=== PATIENT | female | born 1945 | race Caucasian/White ===

== ENCOUNTER 2021-06-08 15:48 | Inpatient (IN) ==
[2021-06-08 17:28] LABS: Basophils % 0.3 %; Eosinophils # 0.1 K/mcL (0.0-0.6); Eosinophils % 1.1 %; Hematocrit 35.7 % (35.3-44.9); Hemoglobin 11.2 g/dL (11.5-15.4); Immature Granulocytes % 0.2 % (0-4); Lymphocytes # 2.1 K/mcL (0.6-4.6); Lymphocytes % 22.4 %; Mean Corpuscular HGB Conc 31.4 g/dL (31.6-35.5); Mean Corpuscular Hemoglobin 32.7 pg (28.0-33.3); Mean Corpuscular Volume 104.1 fL (83.0-100.0); Mean Platelet Volume 12.9 fL (9.4-12.4); Monocytes # 0.6 K/mcL (0.0-1.3); Monocytes % 6.3 %; Neutrophils # 6.5 K/mcL (1.6-8.9); Platelet Count 136 K/mcL (140-400); Red Blood Count 3.43 M/mcL (3.82-4.97); Red Cell Distribution Width 14.1 % (11.5-14.5); Segmented Neutrophils % 69.7 %; White Blood Count 9.3 K/mcL (4.3-11.1)
[2021-06-08 17:48] LABS: BUN/Creatinine Ratio 34 (6-26); Blood Urea Nitrogen 47 mg/dL (8-23); Calcium 9.7 mg/dL (8.6-10.3); Carbon Dioxide 31 mEq/L (23-29); Chloride 106 mEq/L (98-107); Glucose 53 mg/dL (70-105); Osmolality,Calculated 302 (280-300); Potassium 4.7 mEq/L (3.5-5.1); Sodium 141 mEq/L (136-145); eGFR For African Americans 44 (> 60); eGFR For Non-African Americans 36 (> 60)
[2021-06-08 17:58] LABS: Troponin I < 0.03 ng/mL (< 0.04)
[2021-06-08] MEDS ORDERED: Acetaminophen 325 MG TABLET PO PRN (20:06)
[2021-06-08] MEDS ORDERED: Ondansetron 4 MG/2 ML VIAL IVP PRN (20:06)
[2021-06-08] MEDS ORDERED: Naloxone 0.4 MG/ML INJ IVP PRN (20:06)
[2021-06-08] MEDS ORDERED: Perflutren Lipid Microsphere 1.3 ML in 0.9 % Sodium Chloride 8.7 ML IVP PRN (20:09)
[2021-06-08] MEDS ORDERED: *HR* Dextrose 50 % in Water (Vial) 50 ML VIAL IVP PRN (21:58)
[2021-06-08] MEDS ORDERED: Dextrose Gel 15 GM/37.5 ML TUBE PO PRN ×2 (21:58)
[2021-06-08] MEDS ORDERED: D5% in Water 1,000 ML IVC PRN (21:58)
[2021-06-08] MEDS: carvediloL 6.25 MG TABLET PO SCH (23:13)
[2021-06-08] MEDS: Apixaban 5 MG TABLET PO SCH (23:13)
[2021-06-08] MEDS: Divalproex (24 HR) 250 MG TABLET PO SCH (23:14)
[2021-06-09 02:06] LABS: Hemoglobin 10.6 g/dL (11.5-15.4); Mean Corpuscular HGB Conc 33.1 g/dL (31.6-35.5); Mean Corpuscular Hemoglobin 33.8 pg (28.0-33.3); Mean Corpuscular Volume 101.9 fL (83.0-100.0); Mean Platelet Volume 12.6 fL (9.4-12.4); Platelet Count 123 K/mcL (140-400); Red Blood Count 3.14 M/mcL (3.82-4.97); White Blood Count 8.1 K/mcL (4.3-11.1)
[2021-06-09 02:14] LABS: INR 1.6; Prothrombin Time 18.1 Seconds (9.4-12.1)
[2021-06-09 02:16] LABS: Activated Partial Thrombo Time 36.4 Seconds (26.0-36.0)
[2021-06-09 03:39] LABS: Calcium 8.9 mg/dL (8.6-10.3); Potassium 5.3 mEq/L (3.5-5.1)
[2021-06-09] MEDS: Insulin LISPRO 300 UNITS/3 ML VIAL SUBQ SCH ×3 (07:20→17:23)
[2021-06-09] MEDS: carvediloL 6.25 MG TABLET PO SCH ×2 (08:18→15:59)
[2021-06-09] MEDS: Apixaban 5 MG TABLET PO SCH ×2 (08:18→19:43)
[2021-06-09] MEDS: Divalproex (24 HR) 250 MG TABLET PO SCH ×3 (08:18→19:43)
[2021-06-09] MEDS ORDERED: metOLazone 5 MG TABLET PO ONE (15:58)
[2021-06-09] MEDS: Famotidine 20 MG TABLET PO SCH (16:08)
[2021-06-09] MEDS: Isosorbide MONOnitrate (24 HR) 30 MG TAB.ER.24H PO SCH (16:08)
[2021-06-09] MEDS: Bumetanide 1 MG/4 ML VIAL IVP SCH (17:23)
[2021-06-09] MEDS ORDERED: Bumetanide 1 MG/4 ML VIAL IVP SCH (21:00)
[2021-06-10 05:40] LABS: Hematocrit 34.4 % (35.3-44.9); Hemoglobin 11.3 g/dL (11.5-15.4); Mean Corpuscular HGB Conc 32.8 g/dL (31.6-35.5); Mean Corpuscular Hemoglobin 33.7 pg (28.0-33.3); Mean Corpuscular Volume 102.7 fL (83.0-100.0); Mean Platelet Volume 12.8 fL (9.4-12.4); Platelet Count 131 K/mcL (140-400); Red Blood Count 3.35 M/mcL (3.82-4.97); Red Cell Distribution Width 14.1 % (11.5-14.5); White Blood Count 7.9 K/mcL (4.3-11.1)
[2021-06-10 06:02] LABS: Calcium 9.3 mg/dL (8.6-10.3); Potassium 5.1 mEq/L (3.5-5.1)
[2021-06-10] MEDS: Apixaban 5 MG TABLET PO SCH (08:10)
[2021-06-10] MEDS: Insulin LISPRO 300 UNITS/3 ML VIAL SUBQ SCH ×4 (08:11→20:22)
[2021-06-10] MEDS: Isosorbide MONOnitrate (24 HR) 30 MG TAB.ER.24H PO SCH (08:11)
[2021-06-10] MEDS: Divalproex (24 HR) 250 MG TABLET PO SCH ×3 (08:11→20:22)
[2021-06-10] MEDS: Aspirin Enteric Coated 81 MG Tablet PO SCH (08:11)
[2021-06-10] MEDS: Famotidine 20 MG TABLET PO SCH (08:11)
[2021-06-10] MEDS: carvediloL 6.25 MG TABLET PO SCH ×2 (08:11→18:18)
[2021-06-10] MEDS: Bumetanide 1 MG/4 ML VIAL IVP SCH ×2 (08:11→18:19)
[2021-06-10] MEDS ORDERED: amLODIPine 5 MG TABLET PO SCH (09:00)
[2021-06-10] MEDS ORDERED: *HR* Heparin 5,000 UNIT/ML VIAL IVP PRN ×2 (13:05)
[2021-06-10] MEDS ORDERED: *HR* Heparin 5,000 UNIT/ML VIAL IVP ONE (13:05)
[2021-06-10] MEDS ORDERED: Heparin 25,000UNIT/250ML 1/2NS 25,000 UNIT/250 ML IV.SOLN IVC SCH (13:15)
[2021-06-10 13:37] LABS: Hematocrit 33.2 % (35.3-44.9); Hemoglobin 10.6 g/dL (11.5-15.4); Mean Corpuscular HGB Conc 31.9 g/dL (31.6-35.5); Mean Corpuscular Volume 103.4 fL (83.0-100.0); Mean Platelet Volume 12.5 fL (9.4-12.4); Platelet Count 116 K/mcL (140-400); Red Blood Count 3.21 M/mcL (3.82-4.97)
[2021-06-10 13:45] LABS: INR 1.5
[2021-06-10 13:46] LABS: Heparin anti-factor XA UFH 0.66 IU/mL (0.30-0.70)
[2021-06-10] MEDS: Heparin 25,000UNIT/250ML 1/2NS 25,000 UNIT/250 ML IV.SOLN IVC SCH (14:25)
[2021-06-11 07:17] LABS: Hematocrit 33.5 % (35.3-44.9); Hemoglobin 10.5 g/dL (11.5-15.4); Mean Corpuscular HGB Conc 31.3 g/dL (31.6-35.5); Mean Corpuscular Volume 105.3 fL (83.0-100.0); Mean Platelet Volume 12.9 fL (9.4-12.4); Platelet Count 129 K/mcL (140-400); Red Blood Count 3.18 M/mcL (3.82-4.97); Red Cell Distribution Width 14.1 % (11.5-14.5); White Blood Count 7.1 K/mcL (4.3-11.1)
[2021-06-11] MEDS: Bumetanide 1 MG/4 ML VIAL IVP SCH ×3 (08:06→17:42)
[2021-06-11] MEDS: Isosorbide MONOnitrate (24 HR) 30 MG TAB.ER.24H PO SCH (08:06)
[2021-06-11] MEDS: Famotidine 20 MG TABLET PO SCH (08:06)
[2021-06-11] MEDS: Aspirin Enteric Coated 81 MG Tablet PO SCH (08:07)
[2021-06-11] MEDS: Insulin LISPRO 300 UNITS/3 ML VIAL SUBQ SCH ×4 (08:07→22:26)
[2021-06-11] MEDS: Divalproex (24 HR) 250 MG TABLET PO SCH ×3 (08:07→22:26)
[2021-06-11] MEDS: carvediloL 6.25 MG TABLET PO SCH ×2 (08:07→17:41)
[2021-06-11 08:08] LABS: Calcium 9.1 mg/dL (8.6-10.3)
[2021-06-11] MEDS: Heparin 25,000UNIT/250ML 1/2NS 25,000 UNIT/250 ML IV.SOLN IVC SCH (10:43)
[2021-06-11] MEDS: Apixaban 5 MG TABLET PO SCH ×2 (17:41→22:26)
[2021-06-12 02:53] LABS: Hematocrit 34.2 % (35.3-44.9); Hemoglobin 10.9 g/dL (11.5-15.4); Immature Platelets 11.6 % (1.1-6.1); Mean Corpuscular HGB Conc 31.9 g/dL (31.6-35.5); Mean Corpuscular Hemoglobin 33.3 pg (28.0-33.3); Mean Corpuscular Volume 104.6 fL (83.0-100.0); Mean Platelet Volume 13.1 fL (9.4-12.4); Red Blood Count 3.27 M/mcL (3.82-4.97); Red Cell Distribution Width 14.2 % (11.5-14.5); White Blood Count 7.6 K/mcL (4.3-11.1)
[2021-06-12 04:53] LABS: ABG Base Excess 7 mEq/L (-2 to 3); ABG HCO3 34 mEq/L (21-27); ABG Oxygen Saturation 95 % (95-98); ABG PCO2 56 mmHg (35-45); ABG PH 7.39 pH Units (7.32-7.45); ABG PO2 76 mmHg (85-104); ABG TCO2 35 mEq/L (20-26)
[2021-06-12 05:04] LABS: Calcium 9.1 mg/dL (8.6-10.3); Potassium 5.5 mEq/L (3.5-5.1)
[2021-06-12] MEDS: Insulin LISPRO 300 UNITS/3 ML VIAL SUBQ SCH ×4 (11:27→22:01)
[2021-06-12] MEDS: Famotidine 20 MG TABLET PO SCH (11:50)
[2021-06-12] MEDS: Bumetanide 1 MG/4 ML VIAL IVP SCH ×2 (11:50→18:19)
[2021-06-12] MEDS: Aspirin Enteric Coated 81 MG Tablet PO SCH (11:51)
[2021-06-12] MEDS: Isosorbide MONOnitrate (24 HR) 30 MG TAB.ER.24H PO SCH (11:51)
[2021-06-12] MEDS: Apixaban 5 MG TABLET PO SCH ×2 (11:51→22:00)
[2021-06-12] MEDS: carvediloL 6.25 MG TABLET PO SCH ×2 (11:51→18:20)
[2021-06-12] MEDS: Divalproex (24 HR) 250 MG TABLET PO SCH ×3 (11:51→22:00)
[2021-06-12] MEDS: *HR* Amiodarone 200 MG TABLET PO SCH ×3 (11:53→23:05)
[2021-06-13 05:07] LABS: Hematocrit 33.7 % (35.3-44.9); Hemoglobin 11.2 g/dL (11.5-15.4); Mean Corpuscular HGB Conc 33.2 g/dL (31.6-35.5); Mean Corpuscular Hemoglobin 33.6 pg (28.0-33.3); Mean Corpuscular Volume 101.2 fL (83.0-100.0); Mean Platelet Volume 12.9 fL (9.4-12.4); Platelet Count 108 K/mcL (140-400); Red Blood Count 3.33 M/mcL (3.82-4.97); Red Cell Distribution Width 13.9 % (11.5-14.5); White Blood Count 7.2 K/mcL (4.3-11.1)
[2021-06-13 05:25] LABS: Calcium 9.3 mg/dL (8.6-10.3); Potassium 5.5 mEq/L (3.5-5.1)
[2021-06-13] MEDS: Bumetanide 1 MG/4 ML VIAL IVP SCH (08:43)
[2021-06-13] MEDS: Apixaban 5 MG TABLET PO SCH ×2 (08:44→20:01)
[2021-06-13] MEDS: Aspirin Enteric Coated 81 MG Tablet PO SCH (08:44)
[2021-06-13] MEDS: Divalproex (24 HR) 250 MG TABLET PO SCH ×3 (08:44→20:01)
[2021-06-13] MEDS: carvediloL 6.25 MG TABLET PO SCH (08:44)
[2021-06-13] MEDS: Famotidine 20 MG TABLET PO SCH (08:45)
[2021-06-13] MEDS: *HR* Amiodarone 200 MG TABLET PO SCH (08:45)
[2021-06-13] MEDS: Isosorbide MONOnitrate (24 HR) 30 MG TAB.ER.24H PO SCH (08:45)
[2021-06-13] MEDS: Insulin LISPRO 300 UNITS/3 ML VIAL SUBQ SCH ×4 (08:46→20:00)
[2021-06-13] MEDS ORDERED: SODIUM ZIRCONIUM CYCLOSILICATE 5 GM POWD.PACK PO ONE (09:00)
[2021-06-13 09:48] LABS: Uric Acid 9.9 mg/dL (2.3-7.6)
[2021-06-13] MEDS ORDERED: *HR* Midazolam HCl 2 MG/2 ML VIAL IVP PRN (13:29)
[2021-06-13] MEDS ORDERED: 0.9 % Sodium Chloride 500 ML IVC ONE (13:29)
[2021-06-13] MEDS ORDERED: *HR* Midazolam HCl 5 MG/5 ML VIAL IVP ONE ×2 (13:36→13:37)
[2021-06-13] MEDS: *HR* FentaNYL (PF) 100 MCG/2 ML VIAL IVP PRN ×2 (13:45→13:55)
[2021-06-13] MEDS: Albumin 25% 25gram/100mL 25 GM/100 ML IV.SOLN IVPB SCH ×2 (16:16→23:08)
[2021-06-13] MEDS: Bumetanide 1 MG TABLET PO SCH (16:17)
[2021-06-13] MEDS: Insulin DETEMIR 100 UNIT/ML X5UNITS SUBQ SCH (20:01)
[2021-06-14 02:26] LABS: Calcium 9.6 mg/dL (8.6-10.3); Potassium 4.6 mEq/L (3.5-5.1)
[2021-06-14] MEDS: Isosorbide MONOnitrate (24 HR) 30 MG TAB.ER.24H PO SCH (07:48)
[2021-06-14] MEDS: Divalproex (24 HR) 250 MG TABLET PO SCH ×3 (07:49→19:57)
[2021-06-14] MEDS: *HR* Amiodarone 200 MG TABLET PO SCH (07:49)
[2021-06-14] MEDS: Famotidine 20 MG TABLET PO SCH (07:49)
[2021-06-14] MEDS: Aspirin Enteric Coated 81 MG Tablet PO SCH (07:49)
[2021-06-14] MEDS: Apixaban 5 MG TABLET PO SCH ×2 (07:49→19:57)
[2021-06-14] MEDS: Albumin 25% 25gram/100mL 25 GM/100 ML IV.SOLN IVPB SCH ×3 (08:53→23:10)
[2021-06-14] MEDS: Insulin LISPRO 300 UNITS/3 ML VIAL SUBQ SCH ×4 (11:15→19:57)
[2021-06-14 12:20] LABS: Estimated Average Glucose 174 mg/dl; Hemoglobin A1C 7.7 %
[2021-06-14] MEDS: Bumetanide 1 MG TABLET PO SCH (12:37)
[2021-06-14] MEDS: carvediloL 6.25 MG TABLET PO SCH (16:44)
[2021-06-14] MEDS ORDERED: Azithromycin 500 MG in 0.9 % Sodium Chloride 250 ML IVPB SCH (17:00)
[2021-06-14] MEDS: cefTRIAXone 1,000 MG in 0.9 % Sodium Chloride Mini Bag 100 ML IVPB SCH (18:49)
[2021-06-14] MEDS: Doxycycline 100 MG in 0.9 % Sodium Chloride Mini Bag 100 ML IVPB SCH (19:44)
[2021-06-14] MEDS: Insulin DETEMIR 100 UNIT/ML X5UNITS SUBQ SCH (19:58)
[2021-06-15 03:48] LABS: Calcium 9.7 mg/dL (8.6-10.3); Potassium 4.4 mEq/L (3.5-5.1)
[2021-06-15] MEDS: Doxycycline 100 MG in 0.9 % Sodium Chloride Mini Bag 100 ML IVPB SCH ×2 (05:05→16:17)
[2021-06-15] MEDS ORDERED: Bumetanide 1 MG TABLET PO SCH (09:00)
[2021-06-15] MEDS: *HR* Amiodarone 200 MG TABLET PO SCH (10:01)
[2021-06-15] MEDS: Aspirin Enteric Coated 81 MG Tablet PO SCH (10:01)
[2021-06-15] MEDS: Insulin LISPRO 300 UNITS/3 ML VIAL SUBQ SCH ×4 (10:02→20:25)
[2021-06-15] MEDS: Famotidine 20 MG TABLET PO SCH (10:02)
[2021-06-15] MEDS: Divalproex (24 HR) 250 MG TABLET PO SCH ×3 (10:02→20:24)
[2021-06-15] MEDS: Isosorbide MONOnitrate (24 HR) 30 MG TAB.ER.24H PO SCH ×2 (10:03→16:19)
[2021-06-15] MEDS: Apixaban 5 MG TABLET PO SCH ×2 (10:03→20:24)
[2021-06-15] MEDS: cefTRIAXone 1,000 MG in 0.9 % Sodium Chloride Mini Bag 100 ML IVPB SCH (10:04)
[2021-06-15] MEDS: carvediloL 6.25 MG TABLET PO SCH ×2 (10:04→16:20)
[2021-06-15] MEDS: Albumin 25% 25gram/100mL 25 GM/100 ML IV.SOLN IVPB SCH ×2 (10:05→16:18)
[2021-06-15] MEDS: Bumetanide 1 MG/4 ML VIAL IVP SCH ×2 (16:20→18:32)
[2021-06-16] MEDS: Albumin 25% 25gram/100mL 25 GM/100 ML IV.SOLN IVPB SCH ×4 (02:16→23:03)
[2021-06-16] MEDS: Insulin LISPRO 300 UNITS/3 ML VIAL SUBQ SCH ×4 (02:18→20:31)
[2021-06-16] MEDS: Insulin DETEMIR 100 UNIT/ML X5UNITS SUBQ SCH ×2 (04:45→20:32)
[2021-06-16] MEDS: Doxycycline 100 MG in 0.9 % Sodium Chloride Mini Bag 100 ML IVPB SCH ×2 (05:40→18:05)
[2021-06-16] MEDS: Apixaban 5 MG TABLET PO SCH ×2 (08:08→20:26)
[2021-06-16] MEDS: Isosorbide MONOnitrate (24 HR) 30 MG TAB.ER.24H PO SCH (08:09)
[2021-06-16] MEDS: carvediloL 6.25 MG TABLET PO SCH ×2 (08:09→16:11)
[2021-06-16] MEDS: Divalproex (24 HR) 250 MG TABLET PO SCH ×3 (08:09→20:26)
[2021-06-16] MEDS: Famotidine 20 MG TABLET PO SCH (08:09)
[2021-06-16] MEDS: Aspirin Enteric Coated 81 MG Tablet PO SCH (08:09)
[2021-06-16] MEDS: *HR* Amiodarone 200 MG TABLET PO SCH (08:09)
[2021-06-16] MEDS: Bumetanide 1 MG/4 ML VIAL IVP SCH ×2 (08:09→16:11)
[2021-06-16] MEDS: cefTRIAXone 1,000 MG in 0.9 % Sodium Chloride Mini Bag 100 ML IVPB SCH (08:10)
[2021-06-16 10:02] LABS: Potassium 4.4 mEq/L (3.5-5.1)
[2021-06-16] MEDS ORDERED: Ipratropium/Albuterol Neb 3 ML IH PRN (17:45)
[2021-06-16] MEDS: predniSONE 20 MG TABLET PO SCH (18:00)
[2021-06-17 02:17] LABS: Calcium 10.5 mg/dL (8.6-10.3); Potassium 4.3 mEq/L (3.5-5.1)
[2021-06-17] MEDS: Doxycycline 100 MG in 0.9 % Sodium Chloride Mini Bag 100 ML IVPB SCH ×2 (05:23→18:23)
[2021-06-17] MEDS: *HR* Amiodarone 200 MG TABLET PO SCH (08:32)
[2021-06-17] MEDS: Famotidine 20 MG TABLET PO SCH (08:32)
[2021-06-17] MEDS: Aspirin Enteric Coated 81 MG Tablet PO SCH (08:32)
[2021-06-17] MEDS: predniSONE 20 MG TABLET PO SCH (08:32)
[2021-06-17] MEDS: Apixaban 5 MG TABLET PO SCH ×2 (08:33→20:21)
[2021-06-17] MEDS: carvediloL 6.25 MG TABLET PO SCH ×2 (08:33→18:24)
[2021-06-17] MEDS: Bumetanide 1 MG/4 ML VIAL IVP SCH ×2 (08:33→18:23)
[2021-06-17] MEDS: Isosorbide MONOnitrate (24 HR) 30 MG TAB.ER.24H PO SCH ×2 (08:33→15:28)
[2021-06-17] MEDS: Divalproex (24 HR) 250 MG TABLET PO SCH ×3 (08:33→20:22)
[2021-06-17] MEDS: Insulin LISPRO 300 UNITS/3 ML VIAL SUBQ SCH ×4 (08:34→20:34)
[2021-06-17] MEDS: cefTRIAXone 1,000 MG in 0.9 % Sodium Chloride Mini Bag 100 ML IVPB SCH (08:35)
[2021-06-17 09:07] LABS: ANA IgG by ELISA NONE DETECTED (None Detected)
[2021-06-17] MEDS: Albumin 25% 25gram/100mL 25 GM/100 ML IV.SOLN IVPB SCH (11:41)
[2021-06-17] MEDS ORDERED: Isosorbide MONOnitrate (24 HR) 30 MG TAB.ER.24H PO SCH (13:15)
[2021-06-17] MEDS ORDERED: Isosorbide MONOnitrate (24 HR) 30 MG TAB.ER.24H PO ONE (13:15)
[2021-06-17] MEDS: Spironolactone 25 MG TABLET PO SCH (15:28)
[2021-06-17] MEDS: Insulin DETEMIR 100 UNIT/ML X5UNITS SUBQ SCH (20:34)
[2021-06-18 03:24] LABS: Beta Globulin (PEP) 0.76 g/dL (0.48-1.10)
[2021-06-18 04:59] LABS: Hematocrit 28.3 % (35.3-44.9); Mean Corpuscular HGB Conc 32.9 g/dL (31.6-35.5); Mean Corpuscular Hemoglobin 32.7 pg (28.0-33.3); Mean Corpuscular Volume 99.6 fL (83.0-100.0); Red Blood Count 2.84 M/mcL (3.82-4.97)
[2021-06-18] MEDS: Doxycycline 100 MG in 0.9 % Sodium Chloride Mini Bag 100 ML IVPB SCH (04:59)
[2021-06-18 05:01] LABS: Hemoglobin 9.3 g/dL (11.5-15.4); Immature Platelets 14.7 % (1.1-6.1); Mean Platelet Volume 13.5 fL (9.4-12.4); Red Cell Distribution Width 13.6 % (11.5-14.5); White Blood Count 7.6 K/mcL (4.3-11.1)
[2021-06-18 05:19] LABS: Calcium 10.4 mg/dL (8.6-10.3); Potassium 4.3 mEq/L (3.5-5.1)
[2021-06-18 08:46] LABS: Serine Protease-3 Antibody 61 AU/mL (0-19)
[2021-06-18 08:52] LABS: IFE Reflexed NOT DONE
[2021-06-18] MEDS: predniSONE 20 MG TABLET PO SCH (10:02)
[2021-06-18] MEDS: *HR* Amiodarone 200 MG TABLET PO SCH (10:02)
[2021-06-18] MEDS: Aspirin Enteric Coated 81 MG Tablet PO SCH (10:02)
[2021-06-18] MEDS: Apixaban 5 MG TABLET PO SCH ×2 (10:02→21:02)
[2021-06-18] MEDS: carvediloL 6.25 MG TABLET PO SCH ×2 (10:03→18:41)
[2021-06-18] MEDS: Divalproex (24 HR) 250 MG TABLET PO SCH ×3 (10:05→21:02)
[2021-06-18] MEDS: Famotidine 20 MG TABLET PO SCH (10:05)
[2021-06-18] MEDS: Isosorbide MONOnitrate (24 HR) 30 MG TAB.ER.24H PO SCH (10:05)
[2021-06-18] MEDS: Spironolactone 25 MG TABLET PO SCH (10:05)
[2021-06-18] MEDS: Bumetanide 1 MG/4 ML VIAL IVP SCH ×2 (10:05→18:42)
[2021-06-18] MEDS: Insulin LISPRO 300 UNITS/3 ML VIAL SUBQ SCH ×5 (10:12→21:07)
[2021-06-18] MEDS: Cefdinir 300 MG CAPSULE PO SCH ×2 (10:19→21:02)
[2021-06-18] MEDS: cefTRIAXone 1,000 MG in 0.9 % Sodium Chloride Mini Bag 100 ML IVPB SCH (10:38)
[2021-06-18] MEDS: Albumin 25% 25gram/100mL 25 GM/100 ML IV.SOLN IVPB SCH ×2 (11:23→16:36)
[2021-06-18] MEDS ORDERED: Bumetanide 1 MG/4 ML VIAL IVP ONE (11:30)
[2021-06-18] MEDS ORDERED: Albumin 25% 25gram/100mL 25 GM/100 ML IV.SOLN IVPB SCH (16:00)
[2021-06-18] MEDS ORDERED: Bumetanide 1 MG/4 ML VIAL IVP SCH (17:00)
[2021-06-18] MEDS: Doxycycline 100 MG CAPSULE PO SCH (18:41)
[2021-06-18] MEDS: Insulin DETEMIR 100 UNIT/ML X5UNITS SUBQ SCH (21:12)
[2021-06-19 04:41] LABS: Hemoglobin 9.4 g/dL (11.5-15.4); Mean Corpuscular HGB Conc 33.6 g/dL (31.6-35.5); Mean Corpuscular Hemoglobin 33.5 pg (28.0-33.3); Mean Corpuscular Volume 99.6 fL (83.0-100.0); Mean Platelet Volume 13.2 fL (9.4-12.4); Platelet Count 112 K/mcL (140-400); Red Blood Count 2.81 M/mcL (3.82-4.97); White Blood Count 8.1 K/mcL (4.3-11.1)
[2021-06-19] MEDS: Albumin 25% 25gram/100mL 25 GM/100 ML IV.SOLN IVPB SCH ×2 (06:24→16:23)
[2021-06-19] MEDS: Doxycycline 100 MG CAPSULE PO SCH (06:25)
[2021-06-19] MEDS: Aspirin Enteric Coated 81 MG Tablet PO SCH (07:30)
[2021-06-19] MEDS: Divalproex (24 HR) 250 MG TABLET PO SCH ×3 (07:30→20:57)
[2021-06-19] MEDS: Spironolactone 25 MG TABLET PO SCH (07:31)
[2021-06-19] MEDS: Famotidine 20 MG TABLET PO SCH (07:31)
[2021-06-19] MEDS: predniSONE 20 MG TABLET PO SCH (07:31)
[2021-06-19] MEDS: *HR* Amiodarone 200 MG TABLET PO SCH (07:31)
[2021-06-19] MEDS: Isosorbide MONOnitrate (24 HR) 30 MG TAB.ER.24H PO SCH (07:31)
[2021-06-19] MEDS: Apixaban 5 MG TABLET PO SCH ×2 (07:32→20:57)
[2021-06-19] MEDS: carvediloL 6.25 MG TABLET PO SCH ×2 (07:32→16:57)
[2021-06-19] MEDS: Insulin LISPRO 300 UNITS/3 ML VIAL SUBQ SCH ×4 (07:32→20:56)
[2021-06-19] MEDS: Bumetanide 1 MG/4 ML VIAL IVP SCH ×2 (08:47→18:35)
[2021-06-19 09:22] LABS: Calcium 10.5 mg/dL (8.6-10.3); Potassium 4.1 mEq/L (3.5-5.1)
[2021-06-19 10:02] LABS: Amorphous Sediment,Urine Few per hpf (None-Few); Bilirubin,Urine Negative (Negative); Blood,Urine Negative (Negative); Clarity,Urine Clear (Clear); Color,Urine Light-Yellow (Yellow); Glucose,Urine (UA) Normal (Normal); Hyaline Casts,Urine Moderate per lpf (None Seen); Ketones,Urine Negative (Negative); Leukocyte Esterase,Urine Negative (Negative); Mucus,Urine Few per lpf (None-Few); Nitrite,Urine Negative (Negative); PH,Urine 5.5 pH Units (5.0-8.0); Protein,Urine 50 mg/dL (Neg-Trace); RBC,Urine 0-3 per hpf (0-3); Specific Gravity,Urine 1.014 (1.010-1.025); Squamous Epithelial Cell,Urine Few per hpf (None-Few); Urobilinogen,Urine Normal (Normal); WBC,Urine 0-3 per hpf (0-3)
[2021-06-19] MEDS ORDERED: Bumetanide 1 MG/4 ML VIAL IVP ONE (10:55)
[2021-06-19] MEDS ORDERED: Spironolactone 25 MG TABLET PO ONE (10:57)
[2021-06-19] MEDS: Insulin DETEMIR 100 UNIT/ML X5UNITS SUBQ SCH (23:32)
[2021-06-20 02:14] LABS: Hematocrit 29.1 % (35.3-44.9); Hemoglobin 9.5 g/dL (11.5-15.4); Immature Platelets 12.8 % (1.1-6.1); Mean Corpuscular HGB Conc 32.6 g/dL (31.6-35.5); Mean Corpuscular Hemoglobin 32.8 pg (28.0-33.3); Mean Corpuscular Volume 100.3 fL (83.0-100.0); Mean Platelet Volume 13.1 fL (9.4-12.4); Red Blood Count 2.9 M/mcL (3.82-4.97); Red Cell Distribution Width 14.1 % (11.5-14.5); White Blood Count 8.8 K/mcL (4.3-11.1)
[2021-06-20 02:27] LABS: Calcium 10.5 mg/dL (8.6-10.3); Potassium 4.3 mEq/L (3.5-5.1)
[2021-06-20] MEDS: Albumin 25% 25gram/100mL 25 GM/100 ML IV.SOLN IVPB SCH (07:42)
[2021-06-20] MEDS: *HR* Amiodarone 200 MG TABLET PO SCH (07:47)
[2021-06-20] MEDS: Isosorbide MONOnitrate (24 HR) 30 MG TAB.ER.24H PO SCH (07:47)
[2021-06-20] MEDS: Apixaban 5 MG TABLET PO SCH ×2 (07:47→19:43)
[2021-06-20] MEDS: Famotidine 20 MG TABLET PO SCH (07:47)
[2021-06-20] MEDS: Aspirin Enteric Coated 81 MG Tablet PO SCH (07:47)
[2021-06-20] MEDS: Divalproex (24 HR) 250 MG TABLET PO SCH ×3 (07:47→19:42)
[2021-06-20] MEDS: Bumetanide 1 MG/4 ML VIAL IVP SCH (07:48)
[2021-06-20] MEDS: Insulin LISPRO 300 UNITS/3 ML VIAL SUBQ SCH ×3 (07:48→17:07)
[2021-06-20] MEDS: carvediloL 6.25 MG TABLET PO SCH ×2 (07:48→17:07)
[2021-06-20] MEDS: predniSONE 20 MG TABLET PO SCH (08:31)
[2021-06-20] MEDS: hydrALAZINE 25 MG TABLET PO SCH ×2 (08:31→17:07)
[2021-06-20] MEDS: Spironolactone 25 MG TABLET PO SCH (08:31)
[2021-06-20] MEDS ORDERED: Insulin DETEMIR 100 UNIT/ML X5UNITS SUBQ SCH (09:00)
[2021-06-21] MEDS: hydrALAZINE 25 MG TABLET PO SCH ×3 (01:23→15:42)
[2021-06-21] MEDS: Insulin LISPRO 300 UNITS/3 ML VIAL SUBQ SCH ×5 (02:11→21:19)
[2021-06-21 06:07] LABS: Hemoglobin 9.9 g/dL (11.5-15.4); Mean Corpuscular Volume 99.3 fL (83.0-100.0); Red Cell Distribution Width 14.1 % (11.5-14.5)
[2021-06-21 06:09] LABS: Hematocrit 29.9 % (35.3-44.9); Immature Platelets 12.7 % (1.1-6.1); Mean Corpuscular HGB Conc 33.1 g/dL (31.6-35.5); Mean Corpuscular Hemoglobin 32.9 pg (28.0-33.3); Mean Platelet Volume 13.4 fL (9.4-12.4); Red Blood Count 3.01 M/mcL (3.82-4.97); White Blood Count 9.9 K/mcL (4.3-11.1)
[2021-06-21 06:25] LABS: Albumin/Globulin Ratio 2.4 (1.1-2.2); Bilirubin,Direct 0.3 mg/dL (0.0-0.2); Bilirubin,Indirect 0.6 mg/dL (0.0-1.0); Bilirubin,Total 0.9 mg/dL (0.3-1.0); Globulin 2.1 g/dL (2.4-3.5); Total Protein 7.1 g/dL (6.4-8.9)
[2021-06-21 06:28] LABS: Calcium 10.7 mg/dL (8.6-10.3); Magnesium 2.6 mg/dL (1.6-2.6); Potassium 4.5 mEq/L (3.5-5.1)
[2021-06-21 06:37] LABS: Thyroid Stimulating Hormone 2.707 mcIU/mL (0.340-5.600)
[2021-06-21] MEDS ORDERED: Bumetanide 1 MG/4 ML VIAL IVP ONE (07:30)
[2021-06-21] MEDS: Divalproex (24 HR) 250 MG TABLET PO SCH ×3 (08:14→21:16)
[2021-06-21] MEDS: Isosorbide MONOnitrate (24 HR) 30 MG TAB.ER.24H PO SCH (08:15)
[2021-06-21] MEDS: predniSONE 20 MG TABLET PO SCH (08:16)
[2021-06-21] MEDS: Apixaban 5 MG TABLET PO SCH ×2 (08:16→21:16)
[2021-06-21] MEDS: Aspirin Enteric Coated 81 MG Tablet PO SCH (08:17)
[2021-06-21] MEDS: Famotidine 20 MG TABLET PO SCH (08:17)
[2021-06-21] MEDS: *HR* Amiodarone 200 MG TABLET PO SCH (08:17)
[2021-06-21] MEDS: carvediloL 6.25 MG TABLET PO SCH ×2 (08:18→15:42)
[2021-06-21] MEDS: Spironolactone 25 MG TABLET PO SCH (08:18)
[2021-06-21] MEDS: Insulin DETEMIR 100 UNIT/ML X5UNITS SUBQ SCH ×2 (08:28→21:18)
[2021-06-21] MEDS: Bumetanide 1 MG TABLET PO SCH (21:16)
[2021-06-22 02:00] LABS: Hemoglobin 9.5 g/dL (11.5-15.4); Mean Corpuscular Volume 97.6 fL (83.0-100.0)
[2021-06-22 02:02] LABS: Immature Platelets 10.9 % (1.1-6.1); Mean Corpuscular HGB Conc 33.9 g/dL (31.6-35.5); Mean Corpuscular Hemoglobin 33.1 pg (28.0-33.3); Mean Platelet Volume 12.9 fL (9.4-12.4); Red Blood Count 2.87 M/mcL (3.82-4.97); Red Cell Distribution Width 13.6 % (11.5-14.5); White Blood Count 8.7 K/mcL (4.3-11.1)
[2021-06-22 02:18] LABS: Calcium 10.4 mg/dL (8.6-10.3); Potassium 4.4 mEq/L (3.5-5.1)
[2021-06-22] MEDS: Aspirin Enteric Coated 81 MG Tablet PO SCH (08:37)
[2021-06-22] MEDS: Famotidine 20 MG TABLET PO SCH (08:37)
[2021-06-22] MEDS: Bumetanide 1 MG TABLET PO SCH ×2 (08:37→17:30)
[2021-06-22] MEDS: predniSONE 10 MG TABLET PO SCH (08:37)
[2021-06-22] MEDS: *HR* Amiodarone 200 MG TABLET PO SCH (08:37)
[2021-06-22] MEDS: Isosorbide MONOnitrate (24 HR) 30 MG TAB.ER.24H PO SCH (08:37)
[2021-06-22] MEDS: Apixaban 5 MG TABLET PO SCH ×2 (08:37→20:59)
[2021-06-22] MEDS: Spironolactone 25 MG TABLET PO SCH (08:37)
[2021-06-22] MEDS: Divalproex (24 HR) 250 MG TABLET PO SCH ×3 (08:37→21:00)
[2021-06-22] MEDS: Insulin DETEMIR 100 UNIT/ML X5UNITS SUBQ SCH ×2 (08:44→21:01)
[2021-06-22] MEDS: hydrALAZINE 25 MG TABLET PO SCH ×4 (08:44→17:30)
[2021-06-22] MEDS: Insulin LISPRO 300 UNITS/3 ML VIAL SUBQ SCH ×4 (08:44→21:00)
[2021-06-23] MEDS: hydrALAZINE 25 MG TABLET PO SCH ×5 (00:24→23:27)
[2021-06-23 04:21] LABS: Basophils % 0.1 %; Eosinophils # 0.2 K/mcL (0.0-0.6); Eosinophils % 1.6 %; Hematocrit 30.9 % (35.3-44.9); Hemoglobin 10.2 g/dL (11.5-15.4); Immature Granulocytes % 0.7 % (0-4); Lymphocytes # 2.7 K/mcL (0.6-4.6); Lymphocytes % 25.2 %; Mean Corpuscular Hemoglobin 32.6 pg (28.0-33.3); Mean Corpuscular Volume 98.7 fL (83.0-100.0); Mean Platelet Volume 12.4 fL (9.4-12.4); Monocytes # 0.7 K/mcL (0.0-1.3); Monocytes % 6.7 %; Neutrophils # 7.1 K/mcL (1.6-8.9); Platelet Count 135 K/mcL (140-400); Red Blood Count 3.13 M/mcL (3.82-4.97); Red Cell Distribution Width 14.2 % (11.5-14.5); Segmented Neutrophils % 65.7 %; White Blood Count 10.8 K/mcL (4.3-11.1)
[2021-06-23 04:42] LABS: Calcium 10.6 mg/dL (8.6-10.3); Magnesium 2.2 mg/dL (1.6-2.6); Potassium 4.1 mEq/L (3.5-5.1)
[2021-06-23 05:05] LABS: Folate 11.7 ng/mL (3.0-16.0)
[2021-06-23] MEDS: Insulin LISPRO 300 UNITS/3 ML VIAL SUBQ SCH ×4 (09:03→20:04)
[2021-06-23] MEDS: Insulin DETEMIR 100 UNIT/ML X5UNITS SUBQ SCH ×2 (09:03→19:59)
[2021-06-23] MEDS: Famotidine 20 MG TABLET PO SCH (09:04)
[2021-06-23] MEDS: Divalproex (24 HR) 250 MG TABLET PO SCH ×3 (09:04→19:59)
[2021-06-23] MEDS: Spironolactone 25 MG TABLET PO SCH (09:04)
[2021-06-23] MEDS: *HR* Amiodarone 200 MG TABLET PO SCH (09:05)
[2021-06-23] MEDS: predniSONE 10 MG TABLET PO SCH (09:05)
[2021-06-23] MEDS: Bumetanide 1 MG TABLET PO SCH ×2 (09:05→17:40)
[2021-06-23] MEDS: Apixaban 5 MG TABLET PO SCH ×2 (09:05→19:59)
[2021-06-23] MEDS: Aspirin Enteric Coated 81 MG Tablet PO SCH (09:05)
[2021-06-23] MEDS: Isosorbide MONOnitrate (24 HR) 30 MG TAB.ER.24H PO SCH (09:05)
[2021-06-23] MEDS ORDERED: Isosorbide MONOnitrate (24 HR) 30 MG TAB.ER.24H PO ONE (13:06)
[2021-06-24] MEDS ORDERED: Famotidine 20 MG/2 ML VIAL IVP ONE (04:15)
[2021-06-24 04:41] LABS: Basophils % 0.1 %; Eosinophils # 0.2 K/mcL (0.0-0.6); Eosinophils % 1.7 %; Hematocrit 30.4 % (35.3-44.9); Immature Granulocytes % 0.7 % (0-4); Lymphocytes # 3.2 K/mcL (0.6-4.6); Lymphocytes % 29.6 %; Mean Corpuscular HGB Conc 32.9 g/dL (31.6-35.5); Mean Corpuscular Hemoglobin 32.5 pg (28.0-33.3); Mean Corpuscular Volume 98.7 fL (83.0-100.0); Mean Platelet Volume 13.2 fL (9.4-12.4); Monocytes # 0.8 K/mcL (0.0-1.3); Monocytes % 7.7 %; Platelet Count 136 K/mcL (140-400); Red Blood Count 3.08 M/mcL (3.82-4.97); Red Cell Distribution Width 14.1 % (11.5-14.5); Segmented Neutrophils % 60.2 %; White Blood Count 10.9 K/mcL (4.3-11.1)
[2021-06-24 04:43] LABS: Neutrophils # 6.6 K/mcL (1.6-8.9)
[2021-06-24 04:56] LABS: Calcium 10.5 mg/dL (8.6-10.3); Magnesium 2.1 mg/dL (1.6-2.6); Potassium 3.9 mEq/L (3.5-5.1)
[2021-06-24] MEDS: hydrALAZINE 25 MG TABLET PO SCH ×5 (05:21→20:08)
[2021-06-24] MEDS: Insulin LISPRO 300 UNITS/3 ML VIAL SUBQ SCH ×4 (10:05→20:08)
[2021-06-24] MEDS: Insulin DETEMIR 100 UNIT/ML X5UNITS SUBQ SCH ×2 (10:06→20:07)
[2021-06-24] MEDS: *HR* Amiodarone 200 MG TABLET PO SCH (10:07)
[2021-06-24] MEDS: predniSONE 10 MG TABLET PO SCH (10:07)
[2021-06-24] MEDS: Aspirin Enteric Coated 81 MG Tablet PO SCH (10:07)
[2021-06-24] MEDS: Spironolactone 25 MG TABLET PO SCH (10:08)
[2021-06-24] MEDS: Bumetanide 1 MG TABLET PO SCH ×2 (10:08→17:32)
[2021-06-24] MEDS: Divalproex (24 HR) 250 MG TABLET PO SCH ×3 (10:08→20:08)
[2021-06-24] MEDS: Isosorbide MONOnitrate (24 HR) 30 MG TAB.ER.24H PO SCH (10:08)
[2021-06-24] MEDS: Apixaban 5 MG TABLET PO SCH ×2 (10:08→20:07)
[2021-06-25 04:45] LABS: Basophils % 0.1 %; Eosinophils # 0.2 K/mcL (0.0-0.6); Eosinophils % 2.5 %; Hematocrit 28.4 % (35.3-44.9); Hemoglobin 9.2 g/dL (11.5-15.4); Immature Granulocytes % 0.6 % (0-4); Lymphocytes # 2.9 K/mcL (0.6-4.6); Lymphocytes % 33.3 %; Mean Corpuscular HGB Conc 32.4 g/dL (31.6-35.5); Mean Corpuscular Hemoglobin 31.9 pg (28.0-33.3); Mean Corpuscular Volume 98.6 fL (83.0-100.0); Monocytes # 0.7 K/mcL (0.0-1.3); Monocytes % 8.3 %; Neutrophils # 4.8 K/mcL (1.6-8.9); Platelet Count 123 K/mcL (140-400); Red Blood Count 2.88 M/mcL (3.82-4.97); Red Cell Distribution Width 13.9 % (11.5-14.5); Segmented Neutrophils % 55.2 %; White Blood Count 8.8 K/mcL (4.3-11.1)
[2021-06-25 05:02] LABS: Calcium 9.8 mg/dL (8.6-10.3); Potassium 4.3 mEq/L (3.5-5.1)
[2021-06-25] MEDS: Isosorbide MONOnitrate (24 HR) 30 MG TAB.ER.24H PO SCH (07:35)
[2021-06-25] MEDS: Bumetanide 1 MG TABLET PO SCH ×2 (07:36→15:03)
[2021-06-25] MEDS: predniSONE 10 MG TABLET PO SCH (07:36)
[2021-06-25] MEDS: Divalproex (24 HR) 250 MG TABLET PO SCH ×2 (07:36→15:03)
[2021-06-25] MEDS: Aspirin Enteric Coated 81 MG Tablet PO SCH (07:36)
[2021-06-25] MEDS: Spironolactone 25 MG TABLET PO SCH (07:36)
[2021-06-25] MEDS: *HR* Amiodarone 200 MG TABLET PO SCH (07:36)
[2021-06-25] MEDS: Apixaban 5 MG TABLET PO SCH (07:37)
[2021-06-25] MEDS: hydrALAZINE 25 MG TABLET PO SCH ×3 (07:37→16:57)
[2021-06-25] MEDS: Insulin LISPRO 300 UNITS/3 ML VIAL SUBQ SCH ×3 (07:37→16:59)
[2021-06-25] MEDS ORDERED: cloNIDine HCL 0.1 MG TABLET PO SCH (09:00)
[2021-06-25] MEDS: Insulin DETEMIR 100 UNIT/ML X5UNITS SUBQ SCH (09:34)
[2021-06-25 15:59] VITALS: BP 150/65; PULSE 61; TEMP 98.1
[2021-06-25 17:13] VITALS: O2SAT 96
== END 2021-06-25 19:30 | disposition home health service (06) | DRG 291 ==
LOC: EMEROOARM 15:48 → 3BNU 15:48 → SUATTDRO 06-09 17:10
PROVIDERS: ADMIT Internal Medicine; ATTEND Pharmacist

== ENCOUNTER 2021-08-09 10:51 | Inpatient (IN) ==
[2021-08-09 11:56] LABS: Calcium 10.4 mg/dL (8.6-10.3)
[2021-08-09] MEDS ORDERED: 0.9 % Sodium Chloride 500 ML IVC ONE (13:22)
[2021-08-09] MEDS ORDERED: Naloxone 0.4 MG/ML INJ IVP PRN (13:34)
[2021-08-09] MEDS ORDERED: *HR* HYDROcodone/Acet 5/325 mg TABLET PO PRN (13:34)
[2021-08-09] MEDS ORDERED: Ondansetron 4 MG/2 ML VIAL IVP PRN (13:34)
[2021-08-09] MEDS ORDERED: Dextrose Gel 15 GM/37.5 ML TUBE PO PRN ×2 (13:37)
[2021-08-09] MEDS ORDERED: *HR* Dextrose 50 % in Water (Syg) 50 ML SYRINGE IVP PRN (13:37)
[2021-08-09] MEDS ORDERED: D5% in Water 1,000 ML IVC PRN (13:37)
[2021-08-09] MEDS ORDERED: 0.9 % Sodium Chloride 500 ML IVC SCH (13:45)
[2021-08-09] MEDS: Divalproex (24 HR) 250 MG TABLET PO SCH ×2 (15:02→21:55)
[2021-08-09 15:27] LABS: Bilirubin,Urine Negative (Negative); Blood,Urine Negative (Negative); Clarity,Urine Clear (Clear); Color,Urine Colorless (Yellow); Glucose,Urine (UA) Normal (Normal); Ketones,Urine Negative (Negative); Leukocyte Esterase,Urine Negative (Negative); Nitrite,Urine Negative (Negative); PH,Urine 5.5 pH Units (5.0-8.0); Protein,Urine Trace mg/dL (Neg-Trace); Specific Gravity,Urine 1.011 (1.010-1.025); Urobilinogen,Urine Normal (Normal)
[2021-08-09] MEDS: Insulin LISPRO 300 UNITS/3 ML VIAL SUBQ SCH (17:08)
[2021-08-09] MEDS: Apixaban 2.5 MG TABLET PO SCH (21:55)
[2021-08-10 02:20] LABS: Basophils % 0.3 %; Eosinophils # 0.2 K/mcL (0.0-0.6); Eosinophils % 2.6 %; Hematocrit 29.8 % (35.3-44.9); Hemoglobin 9.9 g/dL (11.5-15.4); Immature Granulocytes % 0.3 % (0-4); Lymphocytes # 1.8 K/mcL (0.6-4.6); Lymphocytes % 29.4 %; Mean Corpuscular HGB Conc 33.2 g/dL (31.6-35.5); Mean Corpuscular Hemoglobin 32.8 pg (28.0-33.3); Mean Corpuscular Volume 98.7 fL (83.0-100.0); Mean Platelet Volume 12.6 fL (9.4-12.4); Monocytes # 0.6 K/mcL (0.0-1.3); Monocytes % 8.9 %; Neutrophils # 3.7 K/mcL (1.6-8.9); Platelet Count 117 K/mcL (140-400); Red Blood Count 3.02 M/mcL (3.82-4.97); Red Cell Distribution Width 14.2 % (11.5-14.5); Segmented Neutrophils % 58.5 %; White Blood Count 6.3 K/mcL (4.3-11.1)
[2021-08-10 02:36] LABS: Calcium 9.6 mg/dL (8.6-10.3); Magnesium 2.1 mg/dL (1.6-2.6); Phosphorous 3.9 mg/dL (2.7-4.5); Potassium 5.9 mEq/L (3.5-5.1)
[2021-08-10] MEDS ORDERED: *HR* Dextrose 50 % in Water (Syg) 50 ML SYRINGE IVP ONE (04:32)
[2021-08-10] MEDS ORDERED: Insulin Human Regular 10 UNIT in 0.9 % Sodium Chloride 10 ML IV ONE (05:00)
[2021-08-10] MEDS: *HR* Amiodarone 200 MG TABLET PO SCH (07:57)
[2021-08-10] MEDS: Famotidine 20 MG TABLET PO SCH (07:57)
[2021-08-10] MEDS: Divalproex (24 HR) 250 MG TABLET PO SCH ×3 (07:57→20:34)
[2021-08-10] MEDS: Apixaban 2.5 MG TABLET PO SCH (07:57)
[2021-08-10] MEDS: Insulin LISPRO 300 UNITS/3 ML VIAL SUBQ SCH ×3 (07:57→15:51)
[2021-08-10] MEDS: Isosorbide MONOnitrate (24 HR) 60 MG TAB.ER.24H PO SCH (07:57)
[2021-08-10] MEDS: Aspirin Enteric Coated 81 MG Tablet PO SCH (07:58)
[2021-08-10 08:19] LABS: Uric Acid 10.8 mg/dL (2.3-7.6)
[2021-08-10] MEDS ORDERED: Sodium Bicarbonate 150 MEQ in Water for inj. (sterile) 1,000 ML IVC SCH (09:30)
[2021-08-10] MEDS: 0.9 % Sodium Chloride 1,000 ML IVC SCH ×2 (10:33→21:52)
[2021-08-10] MEDS: amLODIPine 5 MG TABLET PO SCH (14:18)
[2021-08-10] MEDS: carvediloL 6.25 MG TABLET PO SCH ×2 (14:18→20:51)
[2021-08-10] MEDS ORDERED: Famotidine 20 MG TABLET PO SCH (17:00)
[2021-08-10] MEDS: Apixaban 5 MG TABLET PO SCH (20:34)
[2021-08-11 05:41] LABS: Calcium 9.1 mg/dL (8.6-10.3); Potassium 5.8 mEq/L (3.5-5.1)
[2021-08-11] MEDS: carvediloL 6.25 MG TABLET PO SCH ×2 (08:17→17:30)
[2021-08-11] MEDS ORDERED: SODIUM ZIRCONIUM CYCLOSILICATE 5 GM POWD.PACK PO SCH (09:00)
[2021-08-11] MEDS: Aspirin Enteric Coated 81 MG Tablet PO SCH (10:05)
[2021-08-11] MEDS: Isosorbide MONOnitrate (24 HR) 60 MG TAB.ER.24H PO SCH (10:05)
[2021-08-11] MEDS: amLODIPine 5 MG TABLET PO SCH (10:06)
[2021-08-11] MEDS: *HR* Amiodarone 200 MG TABLET PO SCH (10:07)
[2021-08-11] MEDS: Apixaban 5 MG TABLET PO SCH ×2 (10:07→21:00)
[2021-08-11] MEDS: Divalproex (24 HR) 250 MG TABLET PO SCH ×3 (10:07→21:00)
[2021-08-11] MEDS: Insulin LISPRO 300 UNITS/3 ML VIAL SUBQ SCH ×3 (11:14→17:29)
[2021-08-12] MEDS: carvediloL 6.25 MG TABLET PO SCH ×2 (08:10→16:43)
[2021-08-12 08:18] LABS: Calcium 9.6 mg/dL (8.6-10.3); Potassium 5.6 mEq/L (3.5-5.1)
[2021-08-12] MEDS: Famotidine 20 MG TABLET PO SCH (08:18)
[2021-08-12] MEDS: *HR* Amiodarone 200 MG TABLET PO SCH (08:18)
[2021-08-12] MEDS: amLODIPine 5 MG TABLET PO SCH (08:18)
[2021-08-12] MEDS: Insulin LISPRO 300 UNITS/3 ML VIAL SUBQ SCH ×5 (08:19→16:42)
[2021-08-12] MEDS: Divalproex (24 HR) 250 MG TABLET PO SCH ×3 (08:19→22:09)
[2021-08-12] MEDS: Aspirin Enteric Coated 81 MG Tablet PO SCH (08:19)
[2021-08-12] MEDS: Isosorbide MONOnitrate (24 HR) 60 MG TAB.ER.24H PO SCH (08:19)
[2021-08-12] MEDS: Apixaban 5 MG TABLET PO SCH ×2 (08:19→22:09)
[2021-08-12] MEDS ORDERED: SODIUM ZIRCONIUM CYCLOSILICATE 5 GM POWD.PACK PO ONE (09:49)
[2021-08-12] MEDS ORDERED: Bumetanide 1 MG TABLET PO SCH (11:00)
[2021-08-12] MEDS: Bumetanide 1 MG TABLET PO SCH (12:19)
[2021-08-13 01:43] LABS: Calcium 9.3 mg/dL (8.6-10.3); Potassium 5.2 mEq/L (3.5-5.1)
[2021-08-13] MEDS ORDERED: SODIUM ZIRCONIUM CYCLOSILICATE 5 GM POWD.PACK PO ONE (08:19)
[2021-08-13] MEDS: Bumetanide 1 MG TABLET PO SCH (09:29)
[2021-08-13] MEDS: carvediloL 6.25 MG TABLET PO SCH (09:29)
[2021-08-13] MEDS: Aspirin Enteric Coated 81 MG Tablet PO SCH (09:29)
[2021-08-13] MEDS: Divalproex (24 HR) 250 MG TABLET PO SCH (09:30)
[2021-08-13] MEDS: Isosorbide MONOnitrate (24 HR) 60 MG TAB.ER.24H PO SCH (09:30)
[2021-08-13] MEDS: *HR* Amiodarone 200 MG TABLET PO SCH (09:30)
[2021-08-13] MEDS: amLODIPine 5 MG TABLET PO SCH (09:30)
[2021-08-13] MEDS: Insulin LISPRO 300 UNITS/3 ML VIAL SUBQ SCH ×2 (09:30→11:18)
[2021-08-13] MEDS: Apixaban 5 MG TABLET PO SCH (09:30)
[2021-08-13 10:18] VITALS: BP 178/73; PULSE 55; TEMP 98; O2SAT 99
== END 2021-08-13 14:31 | disposition home or self-care (01) | DRG 683 ==
LOC: 2ANU 10:51 → EMEROOARM 10:51 → SUATTDRO 13:49 → 2ANU 14:31
PROVIDERS: ADMIT Internal Medicine; ATTEND Internal Medicine

== ENCOUNTER 2021-08-22 20:13 | Inpatient (IN) ==
[2021-08-22 20:59] LABS: Basophils % 0.3 %; Eosinophils # 0.3 K/mcL (0.0-0.6); Eosinophils % 3.8 %; Hemoglobin 8.6 g/dL (11.5-15.4); Immature Granulocytes % 0.8 % (0-4); Lymphocytes # 2.1 K/mcL (0.6-4.6); Lymphocytes % 26.8 %; Mean Corpuscular HGB Conc 33.1 g/dL (31.6-35.5); Mean Corpuscular Hemoglobin 32.6 pg (28.0-33.3); Mean Corpuscular Volume 98.5 fL (83.0-100.0); Mean Platelet Volume 11.6 fL (9.4-12.4); Monocytes # 0.5 K/mcL (0.0-1.3); Monocytes % 6.7 %; Neutrophils # 4.9 K/mcL (1.6-8.9); Platelet Count 164 K/mcL (140-400); Red Blood Count 2.64 M/mcL (3.82-4.97); Red Cell Distribution Width 15.2 % (11.5-14.5); Segmented Neutrophils % 61.6 %
[2021-08-22 21:07] LABS: INR 1.3; Prothrombin Time 14.2 Seconds (9.4-12.1)
[2021-08-22 21:09] LABS: Activated Partial Thrombo Time 39.9 Seconds (26.0-36.0)
[2021-08-22 21:17] LABS: Calcium 9.8 mg/dL (8.6-10.3); Potassium 4.9 mEq/L (3.5-5.1)
[2021-08-22] MEDS ORDERED: Naloxone 0.4 MG/ML INJ IVP PRN (22:52)
[2021-08-22] MEDS ORDERED: Ondansetron 4 MG/2 ML VIAL IVP PRN (22:58)
[2021-08-22] MEDS ORDERED: Melatonin 3 MG TABLET PO PRN (22:58)
[2021-08-22] MEDS ORDERED: *HR* Promethazine 25 MG/ML VIAL IM PRN (22:58)
[2021-08-22] MEDS ORDERED: *HR* HYDROcodone/Acet 5/325 mg TABLET PO PRN (22:58)
[2021-08-22] MEDS ORDERED: Acetaminophen 325 MG TABLET PO PRN (22:58)
[2021-08-22] MEDS ORDERED: Dextrose Gel 15 GM/37.5 ML TUBE PO PRN ×2 (23:05)
[2021-08-22] MEDS ORDERED: D5% in Water 1,000 ML IVC PRN (23:05)
[2021-08-22] MEDS ORDERED: *HR* Dextrose 50 % in Water (Syg) 50 ML SYRINGE IVP PRN (23:05)
[2021-08-23] MEDS: Insulin LISPRO 300 UNITS/3 ML VIAL SUBQ SCH ×4 (03:01→18:26)
[2021-08-23 05:41] LABS: Basophils % 0.1 %; Eosinophils # 0.2 K/mcL (0.0-0.6); Hematocrit 22.4 % (35.3-44.9); Hemoglobin 7.4 g/dL (11.5-15.4); Immature Granulocytes % 0.5 % (0-4); Lymphocytes # 2.4 K/mcL (0.6-4.6); Lymphocytes % 32.6 %; Mean Corpuscular Hemoglobin 32.3 pg (28.0-33.3); Mean Corpuscular Volume 97.8 fL (83.0-100.0); Mean Platelet Volume 11.5 fL (9.4-12.4); Monocytes # 0.5 K/mcL (0.0-1.3); Monocytes % 6.6 %; Neutrophils # 4.2 K/mcL (1.6-8.9); Platelet Count 147 K/mcL (140-400); Red Blood Count 2.29 M/mcL (3.82-4.97); Red Cell Distribution Width 15.4 % (11.5-14.5); Segmented Neutrophils % 57.2 %; White Blood Count 7.4 K/mcL (4.3-11.1)
[2021-08-23 05:53] LABS: INR 1.3
[2021-08-23 06:03] LABS: Albumin 3.2 g/dL (3.5-5.7); Albumin/Globulin Ratio 1.1 (1.1-2.2); Bilirubin,Total 0.3 mg/dL (0.3-1.0); Calcium 9.4 mg/dL (8.6-10.3); Globulin 2.8 g/dL (2.4-3.5); Potassium 4.7 mEq/L (3.5-5.1)
[2021-08-23 10:58] LABS: Hematocrit 22.7 % (35.3-44.9); Hemoglobin 7.4 g/dL (11.5-15.4)
[2021-08-23 11:12] LABS: % Iron Saturation 21 % (15-50); Iron 64 mcg/dL (50-170); Transferrin 217 mg/dL (203-362)
[2021-08-23] MEDS: Divalproex (24 HR) 250 MG TABLET PO SCH ×2 (14:00→21:32)
[2021-08-23 16:47] LABS: Hematocrit 24.7 % (35.3-44.9); Hemoglobin 8.1 g/dL (11.5-15.4)
[2021-08-23] MEDS: Insulin DETEMIR 100 UNIT/ML X5UNITS SUBQ SCH (21:32)
[2021-08-24] MEDS: Insulin LISPRO 300 UNITS/3 ML VIAL SUBQ SCH ×4 (00:27→16:42)
[2021-08-24 05:47] LABS: Basophils % 0.3 %; Eosinophils # 0.3 K/mcL (0.0-0.6); Eosinophils % 4.8 %; Hematocrit 22.8 % (35.3-44.9); Hemoglobin 7.6 g/dL (11.5-15.4); Immature Granulocytes % 0.7 % (0-4); Mean Corpuscular HGB Conc 33.3 g/dL (31.6-35.5); Mean Corpuscular Hemoglobin 32.9 pg (28.0-33.3); Mean Corpuscular Volume 98.7 fL (83.0-100.0); Mean Platelet Volume 11.8 fL (9.4-12.4); Monocytes # 0.6 K/mcL (0.0-1.3); Monocytes % 9.6 %; Neutrophils # 3.1 K/mcL (1.6-8.9); Platelet Count 153 K/mcL (140-400); Red Blood Count 2.31 M/mcL (3.82-4.97); Red Cell Distribution Width 15.6 % (11.5-14.5); Segmented Neutrophils % 51.6 %; White Blood Count 6.1 K/mcL (4.3-11.1)
[2021-08-24 06:04] LABS: Calcium 9.2 mg/dL (8.6-10.3); Potassium 4.3 mEq/L (3.5-5.1)
[2021-08-24] MEDS ORDERED: Lidocaine -MPF 2% 5 ML VIAL ONE (07:59)
[2021-08-24] MEDS: amLODIPine 5 MG TABLET PO SCH (10:00)
[2021-08-24] MEDS: Aspirin Enteric Coated 81 MG Tablet PO SCH (10:00)
[2021-08-24] MEDS: Bumetanide 1 MG TABLET PO SCH (10:01)
[2021-08-24] MEDS: Divalproex (24 HR) 250 MG TABLET PO SCH ×3 (10:01→21:20)
[2021-08-24] MEDS: Isosorbide MONOnitrate (24 HR) 60 MG TAB.ER.24H PO SCH (10:01)
[2021-08-24] MEDS: *HR* Amiodarone 200 MG TABLET PO SCH (13:28)
[2021-08-24] MEDS: carvediloL 6.25 MG TABLET PO SCH (16:42)
[2021-08-24] MEDS ORDERED: Insulin LISPRO 300 UNITS/3 ML VIAL SUBQ SCH (21:00)
[2021-08-24] MEDS: Insulin DETEMIR 100 UNIT/ML X5UNITS SUBQ SCH (21:34)
[2021-08-25 06:00] LABS: Basophils % 0.1 %; Eosinophils # 0.3 K/mcL (0.0-0.6); Eosinophils % 4.3 %; Hematocrit 21.7 % (35.3-44.9); Immature Granulocytes % 0.9 % (0-4); Lymphocytes # 2.3 K/mcL (0.6-4.6); Lymphocytes % 32.3 %; Mean Corpuscular HGB Conc 32.3 g/dL (31.6-35.5); Mean Corpuscular Hemoglobin 32.4 pg (28.0-33.3); Mean Corpuscular Volume 100.5 fL (83.0-100.0); Mean Platelet Volume 11.6 fL (9.4-12.4); Monocytes # 0.6 K/mcL (0.0-1.3); Monocytes % 8.4 %; Neutrophils # 3.8 K/mcL (1.6-8.9); Platelet Count 149 K/mcL (140-400); Red Blood Count 2.16 M/mcL (3.82-4.97); Red Cell Distribution Width 15.8 % (11.5-14.5)
[2021-08-25 06:14] LABS: Calcium 8.9 mg/dL (8.6-10.3); Potassium 4.7 mEq/L (3.5-5.1)
[2021-08-25] MEDS: carvediloL 6.25 MG TABLET PO SCH ×2 (08:42→16:24)
[2021-08-25] MEDS: *HR* Amiodarone 200 MG TABLET PO SCH (08:42)
[2021-08-25] MEDS: amLODIPine 5 MG TABLET PO SCH (08:42)
[2021-08-25] MEDS: Divalproex (24 HR) 250 MG TABLET PO SCH ×3 (08:43→20:21)
[2021-08-25] MEDS: Isosorbide MONOnitrate (24 HR) 60 MG TAB.ER.24H PO SCH (08:43)
[2021-08-25] MEDS: Insulin LISPRO 300 UNITS/3 ML VIAL SUBQ SCH ×4 (08:43→20:23)
[2021-08-25] MEDS: Aspirin Enteric Coated 81 MG Tablet PO SCH (08:43)
[2021-08-25] MEDS: Bumetanide 1 MG TABLET PO SCH (08:47)
[2021-08-25 10:31] LABS: Hematocrit 23.6 % (35.3-44.9); Hemoglobin 7.5 g/dL (11.5-15.4)
[2021-08-25 11:19] LABS: Folate 11.8 ng/mL (3.0-16.0)
[2021-08-25] MEDS: Apixaban 5 MG TABLET PO SCH ×2 (14:39→23:07)
[2021-08-25] MEDS: Insulin DETEMIR 100 UNIT/ML X5UNITS SUBQ SCH (20:31)
[2021-08-26 02:03] LABS: Calcium 8.9 mg/dL (8.6-10.3)
[2021-08-26 06:30] LABS: Basophils % 0.3 %; Eosinophils # 0.3 K/mcL (0.0-0.6); Eosinophils % 4.6 %; Hematocrit 19.9 % (35.3-44.9); Hemoglobin 6.7 g/dL (11.5-15.4); Immature Granulocytes % 0.8 % (0-4); Lymphocytes # 2.4 K/mcL (0.6-4.6); Lymphocytes % 32.7 %; Mean Corpuscular HGB Conc 33.7 g/dL (31.6-35.5); Mean Corpuscular Hemoglobin 33.5 pg (28.0-33.3); Mean Platelet Volume 11.5 fL (9.4-12.4); Monocytes # 0.7 K/mcL (0.0-1.3); Monocytes % 9.2 %; Neutrophils # 3.8 K/mcL (1.6-8.9); Platelet Count 143 K/mcL (140-400); Red Cell Distribution Width 15.9 % (11.5-14.5); Segmented Neutrophils % 52.4 %; White Blood Count 7.2 K/mcL (4.3-11.1)
[2021-08-26 06:34] LABS: Mean Corpuscular Volume 99.5 fL (83.0-100.0)
[2021-08-26] MEDS ORDERED: 0.9 % Sodium Chloride 250 ML IVC SCH (07:45)
[2021-08-26] MEDS: Isosorbide MONOnitrate (24 HR) 60 MG TAB.ER.24H PO SCH (08:38)
[2021-08-26] MEDS: Divalproex (24 HR) 250 MG TABLET PO SCH ×3 (08:39→20:45)
[2021-08-26] MEDS: Aspirin Enteric Coated 81 MG Tablet PO SCH (08:39)
[2021-08-26] MEDS: Insulin LISPRO 300 UNITS/3 ML VIAL SUBQ SCH ×4 (08:39→20:53)
[2021-08-26] MEDS: *HR* Amiodarone 200 MG TABLET PO SCH (08:39)
[2021-08-26] MEDS: Bumetanide 1 MG TABLET PO SCH (08:39)
[2021-08-26] MEDS: carvediloL 6.25 MG TABLET PO SCH ×2 (08:39→17:02)
[2021-08-26] MEDS: amLODIPine 5 MG TABLET PO SCH (08:39)
[2021-08-26] MEDS: Apixaban 5 MG TABLET PO SCH ×2 (08:39→20:45)
[2021-08-26 17:31] LABS: Hematocrit 25.6 % (35.3-44.9)
[2021-08-26 17:32] LABS: Hemoglobin 8.3 g/dL (11.5-15.4)
[2021-08-26] MEDS: Insulin DETEMIR 100 UNIT/ML X5UNITS SUBQ SCH (20:45)
[2021-08-27 01:41] LABS: Basophils % 0.5 %; Eosinophils # 0.3 K/mcL (0.0-0.6); Eosinophils % 4.6 %; Hematocrit 22.9 % (35.3-44.9); Hemoglobin 7.6 g/dL (11.5-15.4); Immature Granulocytes % 0.9 % (0-4); Lymphocytes # 2.2 K/mcL (0.6-4.6); Lymphocytes % 33.8 %; Mean Corpuscular HGB Conc 33.2 g/dL (31.6-35.5); Mean Corpuscular Hemoglobin 31.7 pg (28.0-33.3); Mean Corpuscular Volume 95.4 fL (83.0-100.0); Mean Platelet Volume 11.6 fL (9.4-12.4); Monocytes # 0.6 K/mcL (0.0-1.3); Monocytes % 8.7 %; Neutrophils # 3.4 K/mcL (1.6-8.9); Platelet Count 142 K/mcL (140-400); Red Cell Distribution Width 17.8 % (11.5-14.5); Segmented Neutrophils % 51.5 %; White Blood Count 6.5 K/mcL (4.3-11.1)
[2021-08-27 01:59] LABS: Potassium 4.8 mEq/L (3.5-5.1)
[2021-08-27] MEDS: *HR* Amiodarone 200 MG TABLET PO SCH (07:32)
[2021-08-27] MEDS: Bumetanide 1 MG TABLET PO SCH (07:32)
[2021-08-27] MEDS: amLODIPine 5 MG TABLET PO SCH (07:32)
[2021-08-27] MEDS: carvediloL 6.25 MG TABLET PO SCH ×2 (07:32→17:36)
[2021-08-27] MEDS: Isosorbide MONOnitrate (24 HR) 60 MG TAB.ER.24H PO SCH (07:32)
[2021-08-27] MEDS: Aspirin Enteric Coated 81 MG Tablet PO SCH (07:32)
[2021-08-27] MEDS: Apixaban 5 MG TABLET PO SCH (07:33)
[2021-08-27] MEDS: Divalproex (24 HR) 250 MG TABLET PO SCH ×3 (07:33→20:04)
[2021-08-27] MEDS: Insulin LISPRO 300 UNITS/3 ML VIAL SUBQ SCH ×3 (08:43→17:37)
[2021-08-27 10:38] VITALS: BP 147/84; PULSE 46; TEMP 98; O2SAT 98
[2021-08-27 13:32] LABS: Hematocrit 24.8 % (35.3-44.9); Hemoglobin 8.1 g/dL (11.5-15.4)
== END 2021-08-27 20:19 | disposition home health service (06) | DRG 378 ==
LOC: 3ANU 20:13 → EMEROOARM 20:13 → SUATTDRO 23:11 → 3ANU 08-23 00:06
PROVIDERS: ADMIT Internal Medicine; ATTEND Internal Medicine